=== PATIENT | female | born 2005 | race Caucasian/White ===

== ENCOUNTER → 2025-08-04 13:50 | Outpatient (CLI) | payer OTHER, SELFPAY ==
[2025-08-04 14:24] LABS: Add Manual Diff / Slide Review NO; Hematocrit 44.4 % (36-46); Hemoglobin 15.6 g/dL (12.0-16.0); Lymphocytes Absolute Auto 1100 /uL (1100-4500); Mean Corpuscular HGB Conc 35.1 % (30-36); Mean Corpuscular Hemoglobin 32.0 PG (26-34); Mean Corpuscular Volume 91.1 fL (80-100); Platelet Count 331 X10^3/uL (150-400)
[2025-08-04 14:33] LABS: Hemoglobin A1C% w Est Avg Glu 5.1 % (4.0-6.0)
[2025-08-04 14:36] LABS: Appearance Urine UA SL CLOUDY; Bilirubin Urine UA 2+ (NEGATIVE); Color Urine UA YELLOW; Glucose Urine UA NEGATIVE (Negative); Ketones Urine UA 3+ (NEGATIVE); Leukocyte Esterase Urine UA TRACE (NEGATIVE); Nitrite Urine UA NEGATIVE (Negative); Occult Blood Urine UA NEGATIVE (Negative); Protein Urine UA 2+ (Negative); Specific Gravity Urine UA 1.020 (1.000-1.035); Urobilinogen Urine UA 2.0 E.U./dL (0.2)
[2025-08-04 14:48] LABS: pH Urine UA 6.5 (4.5-8.0)
[2025-08-04 14:50] LABS: Ictotest Urine Negative (Negative)
[2025-08-04 14:51] LABS: Culture Indicated Urine Specimen Cultured
[2025-08-04 14:55] LABS: Alanine Aminotransferase 23 IU/L (<35); Albumin 5.6 g/dL (3.5-5.0); Albumin Globulin Ratio 1.7 (1.0-2.8); Alkaline Phosphatase 68 U/L (38-126); Blood Urea Nitrogen 10 mg/dL (7-17); Calcium 10.3 mg/dL (8.4-10.2); Carbon Dioxide 24 mmol/L (22-32); Chloride 100 mmol/L (98-107); Estimated Glomerular Filt Rate > 60 mL/min (>60); Globulin 3.3 g/dL (1.7-4.1); Glucose 123 mg/dL (70-99); HEMOLYSIS < 15 (0-50); Lipase 68 U/L (23-300); Potassium 3.8 mmol/L (3.4-5.1); Sodium 140 mmol/L (137-145); Total Protein 8.9 g/dL (6.3-8.2)
[2025-08-04 15:11] LABS: HCG Quantitative /Beta subunit < 2.39 mIU/mL
[2025-08-04 15:26] LABS: Thyroid Stimulating Hormone 0.593 uIU/mL (0.47-4.68)
[2025-08-04 16:02] LABS: Folate 3.6 ng/mL (2.76-20.0); Vitamin B12 828 pg/mL (239-931)
[2025-08-05 03:39] LABS: Hepatitis A Antibody IgM Negative (Negative); Hepatitis B Core Antibody IgM Negative (Negative); Hepatitis C Antibody Non Reactive (Non Reactive)
== END ==
PROVIDERS: PCP Student in an Organized Health Care Education/Training Program; Referring Provider Student in an Organized Health Care Education/Training Program; Visit Provider Student in an Organized Health Care Education/Training Program
DX: R11.10 Vomiting, unspecified (principal)
CPT/HCPCS: 36415; 80053; 80074; 81001; 82607; 82746; 83036; 83690; 84443; 84702; 85025; 87086

== ENCOUNTER 2025-08-07 08:58 | Emergency (ER) | payer OTHER, SELFPAY ==
[2025-08-07] VITALS (22 sets, daily range): BP systolic 104–130; BP diastolic 62–90; PULSE 79–142; RESP 15–24; TEMP 37.7; O2SAT 96–99; BMI 23.8
[2025-08-07] MEDS: ONDANSETRON 4 MG/2 ML INJ IV (09:50)
[2025-08-07 09:55] LABS: Add Manual Diff / Slide Review NO; Hematocrit 42.6 % (36-46); Hemoglobin 14.9 g/dL (12.0-16.0); Lymphocytes Absolute Auto 1200 /uL (1100-4500); Mean Corpuscular HGB Conc 34.9 % (30-36); Mean Corpuscular Hemoglobin 31.7 PG (26-34); Mean Corpuscular Volume 90.7 fL (80-100); Platelet Count 281 X10^3/uL (150-400)
[2025-08-07 10:10] LABS: Alanine Aminotransferase 28 IU/L (<35); Albumin 5.4 g/dL (3.5-5.0); Albumin Globulin Ratio 1.6 (1.0-2.8); Alkaline Phosphatase 61 U/L (38-126); Blood Urea Nitrogen 11 mg/dL (7-17); Calcium 9.9 mg/dL (8.4-10.2); Carbon Dioxide 23 mmol/L (22-32); Chloride 97 mmol/L (98-107); Estimated Glomerular Filt Rate > 60 mL/min (>60); Globulin 3.3 g/dL (1.7-4.1); Glucose 112 mg/dL (70-99); HEMOLYSIS < 15 (0-50); Lipase 45 U/L (23-300); Potassium 3.2 mmol/L (3.4-5.1); Sodium 135 mmol/L (137-145); Total Protein 8.7 g/dL (6.3-8.2)
[2025-08-07 11:27] LABS: Ictotest Urine Negative (Negative)
[2025-08-07 11:30] LABS: Lactate (Lactic Acid) 1.1 mmol/L (0.7-2.1)
--- NOTE | 2025-08-07 11:30 | ED_ITS ---
<Statement entered by Jacobo Piedra MD - 08/07/25 15:44> I was present in the department and available for consultation at the time the patient was seen HPI - Abdominal Pain General Chief Complaint: Abdominal Pain Stated Complaint: Throwing up for 2 weeks , not feeling good Time Seen by Provider: 08/07/25 11:15 Source: patient Mode of arrival: Ambulatory History of Present Illness HPI narrative: Minerva is a pleasant 19-year-old female with no reported past medical history who presents to the emergency department with her [id number] for concerns of acute on chronic abdominal pain, nausea, vomiting x2 weeks. Patient states over the last year she has experienced multiple episodes of persistent nausea and vomiting. She recently saw primary care provider in is in the process of further evaluation of this possible chronic condition including outpatient barium swallow, GI referral. However over the last 2 weeks the patient has had persistent nausea and vomiting and has actually lost about 10 lb and is having very minimal urination and bowel movements. She feels extremely dehydrated. She has prescriptions for Reglan, Zofran, promethazine and she attempted to take these this morning however unfortunately threw them up. She reports severe epigastric burning pain that occasionally radiates to the left upper quadrant. She denies flu-like symptoms, coughing, flank pain, alcohol use, drug use, marijuana use. No prior abdominal surgeries. Related Data Previous Rx's ?Medication ?Instructions ?Recorded ondansetron 4 mg disintegrating 4 mg PO Q8H PRN nausea and 08/07/25 tablet vomiting #20 tabs pantoprazole 40 mg tablet,delayed 40 mg PO DAILY 30 da ys #30 tabs 08/07/25 release (Protonix) potassium chloride 10 mEq 10 meq PO DAILY 5 days #5 ta bs 08/07/25 tablet,extended release (Klor-Con) promethazine 25 mg rectal 25 mg NV Q6H PRN vomiting #1 2 ea 08/07/25 suppository Allergies Allergy/AdvReac Type Severity Reaction Status Date / Time No Known Drug Allergies Allergy Verified 08/07/25 09:27 Review of Systems Review of Systems ROS Unobtainable: All systems reviewed & are unremarkable except as noted in HPI and below Patient History Social History Smoking Status: Never smoker Smoking Status: Never smoker Exam Narrative Exam Narrative: GENERAL: 19 year old patient appears stated age. Well-developed patient, in no acute distress. HEAD: Atraumatic. Normocephalic. EYES: No scleral icterus. No injection or drainage. ENT: Dry oral mucous membranes. NECK: Trachea midline. Cervical ROM intact. CARDIOVASCULAR: Regular rate and rhythm. RESPIRATORY: ?Nonlabored respirations. ?Speaking in clear, full sentences. ?Clear to auscultation. Breath sounds equal bilaterally. No wheezes, rales, or rhonchi. ? GASTROINTESTINAL: Bowel sounds present. Epigastric and left upper quadrant tenderness. No rebound or guarding. Abdomen is soft, not distended. BACK: No CVA tenderness NEURO: AOx3. ?Clear speech. ?Moves all 4 extremities appropriately. SKIN: No rash or erythema of visible areas Initial Vital Signs Initial Vital Signs: Vital Signs Temperature 99.8 F H 08/07/25 09:20 Pulse Rate 100 H 08/07/25 09:20 Respiratory Rate 22 08/07/25 09:20 Blood Pressure 126/88 08/07/25 09:20 Pulse Oximetry 96 08/07/25 09:20 Oxygen Delivery Method Room Air 08/07/25 09:20 Course Orders Ordered: ED Orders 08/07/25 09:40 Complete Blood Count AUTO DIFF Stat Comprehensive Metabolic Panel Stat Lactate (Lactic Acid) Stat Lipase Stat 08/07/25 09:41 Magnesium Stat 08/07/25 10:57 Ictotest Urine Stat Urine Culture Stat Urine Microscopic Stat 08/07/25 11:29 CT abdomen pelvis w con Stat Discontinued Medications POTASSIUM CHLORIDE IN WATER (Potassium Cl 10 Meq/100 Ml Quiana) 10 meq in 100 mls @ 100 mls/hr IV Q1H BEBETO Stop: 08/07/25 13:29 Last Infusion: 08/07/25 14:56 Dose: Infused Documented By: Admin: 08/07/25 13:42 Dose: 100 mls/hr Documented By: Infusion: 08/07/25 13:12 Dose: Infused Documented By: Admin: 08/07/25 12:12 Dose: 100 mls/hr Documented By: BJ Sodium Chloride (Normal Saline 0.9%) 1,000 mls @ 1,000 mls/hr IV BOLUS ONE Stop: 08/07/25 12:16 Last Infusion: 08/07/25 12:48 Dose: Infused Documented By: Admin: 08/07/25 11:45 Dose: 1,000 mls/hr Documented By: ES Acetaminophen (Ofirmev) 1,000 mg in 100 mls @ 400 mls/hr IV NOW ONE Stop: 08/07/25 11:46 Last Infusion: 08/07/25 12:22 Dose: Infused Documented By: Admin: 08/07/25 11:45 Dose: 400 mls/hr Documented By: ES Sodium Chloride (Normal Saline 0.9%) 1,000 mls @ 1,000 mls/hr IV BOLUS ONE Stop: 08/07/25 13:17 Last Infusion: 08/07/25 14:56 Dose: Infused Documented By: Admin: 08/07/25 12:48 Dose: 1,000 mls/hr Documented By: BJ Morphine Sulfate (Morphine 2 Mg/Ml Inj) 2 mg IV NOW ONE Stop: 08/07/25 11:30 Last Admin: 08/07/25 11:45 Dose: 2 mg Documented By: BJ Ondansetron HCl (Ondansetron 4 Mg/2 Ml Inj) 4 mg IV NOW PRN PRN Reason: Nausea And Vomiting Last Admin: 08/07/25 09:50 Dose: 4 mg Documented By: RB Ondansetron HCl (Ondansetron 4 Mg Odt) 4 mg PO NOW PRN PRN Reason: Nausea And Vomiting Pantoprazole Sodium (Pantoprazole 40 Mg Vial) 40 mg IV NOW ONE Stop: 08/07/25 11:30 Last Admin: 08/07/25 11:44 Dose: 40 mg Documented By: BJ Vital Signs Vital signs: Vital Signs - 8 hr 08/07/25 09:20 08/07/25 10:09 08/07/25 10:09 Temperature 99.8 F H Pulse Rate 100 H 99 H Respiratory Rate 22 Blood Pressure 126/88 121/90 Pulse Oximetry 96 96 Oxygen Delivery Method Room Air 08/07/25 10:15 08/07/25 10:15 08/07/25 10:30 Temperature Pulse Rate 142 H Respiratory Rate Blood Pressure 125/82 126/82 Pulse Oximetry 99 Oxygen Delivery Method 08/07/25 10:30 08/07/25 10:45 08/07/25 10:45 Temperature Pulse Rate 104 H 95 H Respiratory Rate 15 Blood Pressure 119/78 Pulse Oximetry 97 97 Oxygen Delivery Method 08/07/25 10:57 08/07/25 10:57 08/07/25 11:00 Temperature Pulse Rate 96 H 94 H Respiratory Rate 16 Blood Pressure 130/81 Pulse Oximetry 97 96 Oxygen Delivery Method 08/07/25 11:15 08/07/25 11:15 08/07/25 11:30 Temperature Pulse Rate 95 H 103 H Respiratory Rate Blood Pressure 120/85 Pulse Oximetry 97 96 Oxygen Delivery Method 08/07/25 11:30 08/07/25 11:42 08/07/25 11:42 Temperature Pulse Rate 97 H Respiratory Rate Blood Pressure 120/69 123/83 Pulse Oximetry 97 Oxygen Delivery Method 08/07/25 11:45 08/07/25 11:45 08/07/25 12:00 Temperature Pulse Rate 91 H 87 Respiratory Rate 17 Blood Pressure 127/85 Pulse Oximetry 97 97 Oxygen Delivery Method Room Air 08/07/25 12:00 08/07/25 12:30 08/07/25 12:30 Temperature Pulse Rate 90 Respiratory Rate 23 Blood Pressure 115/81 117/80 Pulse Oximetry 98 Oxygen Delivery Method 08/07/25 12:45 08/07/25 12:45 08/07/25 13:00 Temperature Pulse Rate 89 Respiratory Rate 20 Blood Pressure 104/72 110/79 Pulse Oximetry 99 Oxygen Delivery Method Room Air 08/07/25 13:00 08/07/25 13:30 08/07/25 13:30 Temperature Pulse Rate 87 83 Respiratory Rate 24 24 Blood Pressure 105/71 Pulse Oximetry 98 97 Oxygen Delivery Method 08/07/25 13:45 08/07/25 13:45 08/07/25 14:00 Temperature Pulse Rate 79 Respiratory Rate 19 Blood Pressure 118/72 123/78 Pulse Oximetry 98 Oxygen Delivery Method Room Air 08/07/25 14:00 08/07/25 14:15 08/07/25 14:15 Temperature Pulse Rate 81 84 Respiratory Rate 18 17 Blood Pressure 123/62 Pulse Oximetry 98 97 Oxygen Delivery Method 08/07/25 14:32 08/07/25 14:32 08/07/25 14:45 Temperature Pulse Rate 86 Respiratory Rate 15 Blood Pressure 114/67 109/86 Pulse Oximetry Oxygen Delivery Method 08/07/25 14:45 08/07/25 15:00 08/07/25 15:00 Temperature Pulse Rate 86 85 Respiratory Rate 19 17 Blood Pressure 125/76 Pulse Oximetry 99 99 Oxygen Delivery Method Room Air MDM - Abdominal Pain Medical Records Medical records narrative: None available for review Lab Data 08/07/25 09:40 08/07/25 09:40 Labs: Lab Results 08/07/25 08/07/25 08/07/25 Range/Units 09:40 09:41 10:57 WBC 8.2 (4.5-11.0) X10^3/uL RBC 4.69 (4.0-5.2) X10^6/uL Hgb 14.9 (12.0-16.0) g/dL Hct 42.6 (36-46) % MCV 90.7 (80-100) fL MCH 31.7 (26-34) PG MCHC 34.9 (30-36) % RDW 12.8 (11.6-14.8) % Plt Count 281 (150-400) X10^3/uL Neut % (Auto) 78.1 H (50-75) % Lymph % (Auto) 14.1 L (25-40) % Nolan % (Auto) 6.5 (3-14) % Eos % (Auto) 0.5 L (2-4) % Baso % (Auto) 0.8 (0-2) % Neut # (Auto) 6400 (6555-4715) /uL Lymph # (Auto) 1200 (4869-5104) /uL Nolan # (Auto) 500 (0-900) /uL Eos # (Auto) 0 (0-450) /uL Baso # (Auto) 100 (0-100) /uL Sodium 135 L (137-145) mmol/L Potassium 3.2 L (3.4-5.1) mmol/L Chloride 97 L (98-107) mmol/L Carbon Dioxide 23 (22-32) mmol/L BUN 11 (7-17) mg/dL Creatinine 0.55 (0.52-1.04) mg/dL Estimated GFR > 60 (>60) mL/min BUN/Creatinine Ratio 20.0 (6-22) Glucose 112 H (70-99) mg/dL Lactate 1.1 (0.7-2.1) mmol/L Calcium 9.9 (8.4-10.2) mg/dL Magnesium 2.1 (1.6-2.3) mg/dL Total Bilirubin 1.0 (0.2-1.3) mg/dL AST 29 (14-36) IU/L ALT 28 (<35) IU/L Alkaline Phosphatase 61 (38-126) U/L Total Protein 8.7 H (6.3-8.2) g/dL Albumin 5.4 H (3.5-5.0) g/dL Globulin 3.3 (1.7-4.1) g/dL Albumin/Globulin Ratio 1.6 (1.0-2.8) Lipase 45 (23-300) U/L Ur Bilirubin Confirm Negative (Negative) Urine RBC None seen (0-5/HPF) Urine WBC 1-5/hpf (0-5/HPF) Ur Squamous Epith Cells 1-5 /hpf (0-5/HPF) Urine Bacteria Occasional (0-1) (None) Ur Culture Indicated? Specimen cultured Vol Urine Centrifuged 10ml (spun) Point of care testing: Point of Care Testing Test Results Negative Urine Dip Bedside Urine Glucose Negative Bedside Urine Bilirubin + 1 Bedside Urine Ketone ++ [address] 1.015 Bedside Urine Occult Blood - Negative Bedside Urine pH 6.0 Bedside Urine Protein +/- 15 Bedside Urine Urobilinogen +/- 1mg Bedside Urine Nitrite - Negative Bedside Urine Leukocytes +/- [address] scan - abdomen/pelvis: Radiologist's Impression: PROCEDURE: CT ABDOMEN PELVIS W CON INDICATIONS: epigastric, LUQ pain; N/V TECHNIQUE: After the administration of intravenous contrast, axial sections acquired from the lung bases to the pubic symphysis. Coronal and sagittal reformats were performed. For radiation dose reduction, the following was used: automated exposure control, adjustment of mA and/or kV according to patient size. COMPARISON: None. FINDINGS: Image quality: Diagnostic. Lower Chest: No significant findings. ABDOMEN: Wmyi-fk-jmbjhpil nonspecific wall thickening of the stomach most notably at the gastric cardia and fundus as well as the pylorus and into the proximal duodenum more than expected for artifact from partial nondistention and gastritis could give this appearance. Follow-up suggested. T-shaped intrauterine device in place in the uterus. Normal non dilated appendix. 1.4 cm left ovarian/adnexal follicle or small cyst. Liver: Liver is normal in size contour and attenuation without CT evidence of focal lesion. Gallbladder: No radiopaque gallstones or wall thickening. Biliary ducts: No biliary dilation. Pancreas: No ductal dilation. No abnormal peripancreatic fluid. Spleen: Size is within normal limits. Adrenal Glands: No adrenal nodules. Kidneys and Ureters: No hydronephrosis. No solid mass. No complex renal cystic lesion which requires follow up. Small Bowel: Normal caliber, without significant wall thickening. Peritoneum: No abnormal intraperitoneal fluid. No free air. Ventral Wall: No significant ventral hernia. Abdominal Nodes: No retroperitoneal or mesenteric adenopathy by size criteria. Vessels: Aorta and inferior vena cava are normal in size. PELVIS: Pelvic Organs: Unremarkable. Bladder: No bladder wall thickening, accounting for underdistention. Pelvic Nodes: No enlarged lymph nodes. Miscellaneous: No inguinal hernias are seen. Bones: No aggressive osseous abnormality. IMPRESSION: Nonspecific wall thickening of the stomach and proximal duodenum suspicious for gastritis as discussed above. No abnormal peripancreatic edema. Dictated by: Karlos Pastor M.D. on 08/07/2025 at 11:55 Approved by: Karlos Pastor M.D. on 08/07/2025 at 12:00 [facility] Narrative Medical decision making narrative: 19-year-old female with no reported past medical history who presents to the emergency department with her [id number] for concerns of acute on chronic abdominal pain, nausea, vomiting x2 weeks. Differential diagnosis includes but is not limited to dehydration, RAGHAVENDRA, electrolyte disturbance, gastroparesis, gastritis, pancreatitis, inflammatory bowel disease, UTI, gastroenteritis, etc. On exam patient is in no acute distress, nontoxic appearing, however she is extremely dehydrated appearing with dry mucous membranes. She has epigastric and left upper quadrant abdominal tenderness with no rebound or guarding. Initial labs started in triage, we will add on lactic acid, magnesium, we will treat pain with low-dose morphine and IV Tylenol, treat with IV fluids IV potassium, Protonix. We will wait to replace potassium until magnesium is resulted. Given patient's pain, we will obtain CT abdomen pelvis with IV contrast. Labs reveal normal magnesium 2.1. Hypokalemia 3.2. Sodium 135, chloride 97. Normal WBC count 8.2, hemoglobin 14.9 hematocrit 42.6. BUN 11 creatinine 0.55. Lactate normal 1.1. Normal LFTs and normal lipase 45. Urinalysis reveals 1-5 squam epithelial cells, 1-[address] reveals a nonspecific wall thickening of the stomach and proximal duodenum suspicious for gastritis. Patient feeling better after ED treatment. Discussed imaging and lab work results. She is in the process of following up with GI, recommended endoscopy and further evaluation. We will prescribe rectal Phenergan and ODT Zofran as needed for breakthrough nausea, in addition to daily Protonix for suspected gastritis. Discussed strict ER return precautions and follow up with PCP in addition to GI. Patient and her step mom verbalized understanding of all information agreeable with the plan. Abdominal exam benign. She is tolerating p.o. stable for discharge home. Discharge Plan Departure Patient Disposition: Home Clinical Impression: Dehydration, Acute hypokalemia Nausea & vomiting Qualifiers: Vomiting type: unspecified Qualified Code(s): R11.2 - Nausea with vomiting, unspecified Gastritis Qualifiers: Gastritis type: unspecified gastritis Chronicity: unspecified Gastritis bleeding: without bleeding Qualified Code(s): K29.70 - Gastritis, unspecified, without bleeding Instructions: [place] Diet, DI for Gastritis Activity Restrictions/Additional Instructions: Dear Berta Minerva, Thank you for coming to the emergency department. Today you were evaluated for abdominal pain, nausea, vomiting. Your lab work revealed low potassium. Your CT scan revealed possible gastritis. You have been prescribed dissolvable Zofran to use if needed in addition to rectal Phenergan to use if needed for breakthrough nausea and vomiting. You have also been prescribed 5 days of potassium supplementation, and 1 month of Protonix which is a daily medication for gastritis. It is very important to follow up with your primary care doctor and a gastrointestinal doctor for further evaluation, possible upper endoscopy. Please return to the ER immediately if you develop any new or worsening symptoms, inability to keep down any fluids, fevers severe pain or other concerns. Please follow up with your primary care doctor within the next 2-3 days for ER follow-up. (If you do not have a PCP you can call [phone]. ?to schedule an appointment with an [facility] Primary Care Provider) IF YOU DEVELOP ANY NEW OR WORSENING SYMPTOMS, RETURN TO THE ER! Please read the attached instructions, they highlight more specific treatments and interventions for you at home. Thank you for letting me participate in your care, Marleen Linder PA-C Prescriptions: New promethazine 25 mg suppository 25 mg NV Q6H PRN (Reason: vomiting) Qty: 12 0RF pantoprazole [Protonix] 40 mg tablet,delayed release (DR/EC) 40 mg PO DAILY 30 Days Qty: 30 0RF ondansetron 4 mg tablet,disintegrating 4 mg PO Q8H PRN (Reason: nausea and vomiting) Qty: 20 0RF potassium chloride [Klor-Con 10] 10 mEq tablet extended release 10 meq PO DAILY 5 Days Qty: 5 0RF Stand Alone Forms: Patient Portal/API
[2025-08-07 11:37] LABS: Culture Indicated Urine Specimen Cultured
[2025-08-07] MEDS: PANTOPRAZOLE 40 MG VIAL IV (11:44)
[2025-08-07 11:45] LABS: Magnesium 2.1 mg/dL (1.6-2.3)
[2025-08-07] MEDS: MORPHINE 2 MG/ML INJ IV (11:45)
[2025-08-07] MEDS: ACETAMINOPHEN IV 1,000 MG/100 ML VIAL 400 MG IV (11:45)
[2025-08-07] MEDS: SODIUM CHLORIDE 0.9% 1,000 ML 1000 ML IV ×2 (11:45→12:48)
[2025-08-07] MEDS: POTASSIUM CHLORIDE IN WATER 10 MEQ/100 ML PIGGYBACK 100 MEQ IV ×2 (12:12→13:42)
== END 2025-08-07 15:22 | disposition home or self-care (01) ==
PROVIDERS: Emergency Medicine; Emergency Provider Physician Assistant
DX: K29.70 Gastritis, unspecified, without bleeding (principal); R11.2 Nausea with vomiting, unspecified; E86.0 Dehydration; E87.6 Hypokalemia; R10.13 Epigastric pain; R10.12 Left upper quadrant pain
CPT/HCPCS: 36415; 74177; 80053; 81003; 81015; 81025; 83605; 83690; 83735; 85025; 87086; 96365; 96366; 96367; 96375; 99284; J0131; J2270; J2405; J2470; Q9967

== ENCOUNTER 2025-08-24 14:03 | Day surgery (SDC) | payer OTHER, SELFPAY ==
--- NOTE | 2025-08-24 | PATH_ITS ---
[facility] Accession Number: [id number] No. of containers..01 Tissue . 01 Material submitted: . gastrointestinal site - STOMACH, ANTRAL BIOPSY . 01 Clinical history: . R/O H.PYLORI . 01 Diagnosis: STOMACH, ANTRAL BIOPSY: Gastric antral mucosa with no diagnostic alterations. No Helicobacter organisms identified on H/E stain. No intestinal metaplasia, dysplasia, or malignancy identified. [facility] 09/06/[id number] Local . 01 Electronically signed: . Win Reyes MD, Pathologist NPI- [id number] . 01 Gross description: . Received in formalin with two identifiers and antral biopsy, rule out H. pylori, is a single jane soft tissue fragment 0.3 cm in greatest dimension. Submitted entirely in cassette A1. ([id number]) /[facility] 09/06/20251333 Local . 01 Pathologist provided ICD-10: K29.70 . 01 CPT . 616846 Specimen Comment: A courtesy copy of this report has been sent to [facility] Pathology Performed at: [address], [place], [place] [id number] MD Win Reyes MD Phone: [phone]
--- NOTE | 2025-08-24 07:25 | PM.PREOP ---
Pre-operative Note Interval Note History & Physical reviewed/Exam performed by Physician: Yes Changes to H&P: No ASA Class (for procedural sedation): I
[2025-08-24 14:21] VITALS: BP 113/79; PULSE 71; RESP 24; TEMP 36.1; O2SAT 99
[2025-08-24] MEDS: LACTATED RINGERS 1,000 ML 42 ML IV (14:36)
--- NOTE | 2025-08-24 14:42 | PM.OP.EGD ---
Operative Date/Time/Diagnoses Date of procedure: 08/24/25 Time of procedure: 14:55 Pre-op diagnosis: Abdominal pain, gastritis Post-op diagnosis: same Procedure & Clinicians Study performed: EGD, biopsy Same procedure(s) as scheduled: Yes Indications: 19yo F, abdominal pain, gastritis on imaging Surgeon: Kev Olivares Anesthesia Type: MAC +/- Procedure Notes SCOAP/Timeout: Performed Procedure in detail: EGD Informed consent was obtained. The procedure, its risks, benefits, and alternatives were discussed. Patient understood and agreed to proceed. The patient was placed in the left lateral decubitus position with head elevated. Sedation given per anesthesia. The video endoscope was inserted into the oropharynx and guided under direct vision into the esophagus, stomach, and duodenum which were carefully examined. The scope was retroflexed to examine the hiatus and gastroesophageal junction. Antral biopsies were obtained for Helicobacter pylori. The patient tolerated the procedure very well. There were no apparent complications. Significant EGD findings: Z-line noted at: 38cm Esophagus normal, no hiatal hernia, no esophagitis Gastric body normal, no gastritis, ulcer, polyp, mass; antral biopsies taken for H pylori Duodenum normal, no duodenitis, polyp or mass Specimen(s): other (antral biopsies) Complications: none Impression: Normal EGD Biopsies taken to r/o H pylori Post-procedure Recommendations: Will call with biopsy results Plan for aftercare: PACU then home Follow up: as needed Disposition: PACU
[2025-08-24 14:57] VITALS: BP 91/50; PULSE 66; RESP 11; TEMP 36.1; O2SAT 98
[2025-08-24 15:02] VITALS: BP 95/61; PULSE 59; RESP 18; O2SAT 100
[2025-08-24 15:09] VITALS: BP 106/55; PULSE 69; RESP 18; O2SAT 91
[2025-08-24 15:15] VITALS: BP 108/72; PULSE 74; RESP 19; O2SAT 98
[2025-08-24 15:17] VITALS: BP 114/67; PULSE 66; RESP 15; TEMP 36.1; O2SAT 100
== END 2025-08-24 15:50 | disposition home or self-care (01) ==
PROVIDERS: PCP Student in an Organized Health Care Education/Training Program; Referring Provider Surgery; Visit Provider Surgery
PROC: 0DJ08ZZ Inspection of Upper Intestinal Tract, Via Natural or Artificial Opening Endoscopic (ICD-10-PCS; CPT 43235; principal; 2025-08-24 15:15)
DX: R10.9 Unspecified abdominal pain (principal)
CPT/HCPCS: 43235; J2704; J7120

== ENCOUNTER → 2025-08-30 07:46 | Outpatient (CLI) | payer OTHER, SELFPAY ==
--- NOTE | 2025-08-30 07:48 | DI.NM.S_ITS ---
PROCEDURE: NM GASTRIC EMPTYING STUDY RADIOPHARMACEUTICAL: 1 mCi Tc-99m sulfur colloid in an egg sandwich. INDICATIONS: eval gastroparesis TECHNIQUE: A Tc-99m labeled sulfur colloid labeled egg sandwich or oatmeal was served to the patient. Anterior and posterior planar images of the abdomen were obtained at 0 minutes and 30 minutes, then at hourly intervals up to 4 hours. The patient was upright and ambulating during the interval. COMPARISON: None. FINDINGS: The stomach has normal size, morphology, and position. There is normal emptying of solid gastric contents from the stomach by visual inspection. No gastroesophageal reflux is visualized. The percentage of tracer retained at specific time points are as follows: Time point Percent gastric retention Normal range 30 minutes 100 70% or more 1 hour 81 30% to 90% 2 hours 25 60% or less 3 hours 11 30% or less 4 hours 10 10% or less IMPRESSION: No scintigraphic findings concerning for delayed gastric emptying. Dictated by: Rosa Isela Eduardo M.D. on 08/30/2025 at 13:26 Approved by: Rosa Isela Eduardo M.D. on 08/30/2025 at 13:27
== END ==
LOC: NUCM 07:48
PROVIDERS: PCP Student in an Organized Health Care Education/Training Program; Referring Provider Student in an Organized Health Care Education/Training Program; Visit Provider Student in an Organized Health Care Education/Training Program
DX: R11.10 Vomiting, unspecified (principal)
CPT/HCPCS: 78264; A9541

== ENCOUNTER → 2025-09-13 10:39 | Oncology outpatient (ONC) | payer OTHER, SELFPAY ==
[2025-08-16 10:20] VITALS: BP 123/77; PULSE 123; RESP 18; TEMP 36.9; O2SAT 98
[2025-08-16 10:30] VITALS: BP 119/87; BP 123/77; PULSE 123; PULSE 143
[2025-08-16] MEDS: LACTATED RINGERS 1,000 ML 1000 ML IV (10:50)
[2025-08-16] MEDS: ONDANSETRON 4 MG/2 ML INJ IV (10:50)
--- NOTE | 2025-08-16 11:06 | INF.NOTE ---
Patient here for hydration infusions with IV zofran. Verified with Cinthia RN @ [facility] that Zofran order is ok to give IV with the weekly LR infusions. Orthostatic VS checked, see flowsheet. Patient has ongoing nausea but reports medications have allowed her to tolerate PO fluids and food with small amounts/small sips without emesis. She relays fatigue and foggy brain feeling, dry mouth, dry lips despite the tolerating oral fluids. Skin noted to be dry.
[2025-08-16 12:19] VITALS: BP 115/79; PULSE 72; RESP 16; TEMP 37.3; O2SAT 100
[2025-08-23 10:29] VITALS: BP 89/54; PULSE 73; RESP 18; TEMP 36.6; O2SAT 98
[2025-08-23] MEDS: ONDANSETRON 4 MG/2 ML INJ IV (10:50)
[2025-08-23] MEDS: LACTATED RINGERS 1,000 ML 1000 ML IV (10:51)
[2025-08-23 11:51] VITALS: BP 97/60; PULSE 66; RESP 18; TEMP 36.7; O2SAT 100
--- NOTE | 2025-08-23 11:56 | INF.NOTE ---
Patient here for LR and zofran due to nauseau and vomiting. She is feeling nauseaus today. Zofran administered with improvement resulting. systolic BP 89 at start with complaint of some dizziness. End systolic was 96. Patient states feeling only very light dizziness. She walked to bathroom and back and stated she felt steady and good enough to leave.
[2025-08-28 10:30] VITALS: BP 107/68; PULSE 98; RESP 18; TEMP 36.7; O2SAT 100
[2025-08-28] MEDS: LACTATED RINGERS 1,000 ML 1000 ML IV (10:55)
[2025-08-28] MEDS: ONDANSETRON 4 MG/2 ML INJ IV (10:55)
[2025-08-28 12:25] VITALS: BP 101/54; PULSE 58; RESP 18; TEMP 37.1; O2SAT 99
[2025-08-31] MEDS: ONDANSETRON 4 MG/2 ML INJ IV (11:05)
[2025-08-31 11:06] VITALS: BP 102/68; PULSE 110; RESP 22; TEMP 37; O2SAT 99
[2025-08-31] MEDS: LACTATED RINGERS 1,000 ML 1000 ML IV (11:10)
[2025-08-31 13:13] VITALS: BP 96/50; PULSE 59; RESP 16; TEMP 36.6; O2SAT 100
[2025-09-04 10:41] VITALS: BP 129/73; PULSE 96; RESP 18; TEMP 37.1; O2SAT 97
[2025-09-04] MEDS: LACTATED RINGERS 1,000 ML 1000 ML IV (10:50)
[2025-09-04] MEDS: ONDANSETRON 4 MG/2 ML INJ IV (11:33)
[2025-09-04 12:15] VITALS: BP 95/67; PULSE 78; RESP 18; TEMP 37.2; O2SAT 98
[2025-09-06 10:44] VITALS: BP 114/66; PULSE 95; RESP 16; TEMP 36.4; O2SAT 99
[2025-09-06] MEDS: LACTATED RINGERS 1,000 ML 1000 ML IV (10:50)
[2025-09-06] MEDS: ONDANSETRON 4 MG/2 ML INJ IV (10:50)
[2025-09-06 12:18] VITALS: BP 97/53; PULSE 70; RESP 16; TEMP 36.6; O2SAT 98
[2025-09-11 10:43] VITALS: BP 102/59; PULSE 85; RESP 12; TEMP 36.9; O2SAT 100
[2025-09-11] MEDS: LACTATED RINGERS 1,000 ML 1000 ML IV (10:55)
[2025-09-11] MEDS: ONDANSETRON 4 MG/2 ML INJ IV (10:57)
[2025-09-11 12:09] VITALS: BP 94/59; PULSE 59; RESP 12; TEMP 36.6; O2SAT 100
[2025-09-13] MEDS: ONDANSETRON 4 MG/2 ML INJ IV (10:59)
[2025-09-13] MEDS: LACTATED RINGERS 1,000 ML 1000 ML IV (11:00)
[2025-09-13 11:02] VITALS: BP 96/54; PULSE 76; RESP 16; TEMP 36.7; O2SAT 97
[2025-09-13 12:10] VITALS: BP 93/46; BP 98/62; PULSE 76; PULSE 82; RESP 16; TEMP 36.3; O2SAT 99
== END ==
PROVIDERS: PCP Student in an Organized Health Care Education/Training Program; Referring Provider Student in an Organized Health Care Education/Training Program; Visit Provider Student in an Organized Health Care Education/Training Program
DX: R11.2 Nausea with vomiting, unspecified (principal)
CPT/HCPCS: 96361; 96374; J2405; J7120

== ENCOUNTER 2025-09-18 15:51 | Emergency (ER) | payer OTHER, SELFPAY ==
[2025-09-18 15:56] VITALS: BP 127/76; PULSE 55; RESP 16; TEMP 36.5; O2SAT 99; BMI 24.7
[2025-09-18] MEDS: METOCLOPRAMIDE 10 MG/2 ML INJ IV (16:23)
[2025-09-18] MEDS: SODIUM CHLORIDE 0.9% 1,000 ML 1000 ML IV (16:23)
[2025-09-18] MEDS: diphenhydrAMINE 50 MG/ML VIAL 25 MG IV (16:23)
[2025-09-18 16:32] LABS: Add Manual Diff / Slide Review NO; Hematocrit 39.6 % (36-46); Hemoglobin 13.3 g/dL (12.0-16.0); Lymphocytes Absolute Auto 1100 /uL (1100-4500); Mean Corpuscular HGB Conc 33.6 % (30-36); Mean Corpuscular Hemoglobin 32.0 PG (26-34); Mean Corpuscular Volume 95.0 fL (80-100); Platelet Count 270 X10^3/uL (150-400)
[2025-09-18 16:50] LABS: Alanine Aminotransferase 23 IU/L (<35); Albumin 5.1 g/dL (3.5-5.0); Albumin Globulin Ratio 1.5 (1.0-2.8); Alkaline Phosphatase 52 U/L (38-126); Blood Urea Nitrogen 14 mg/dL (7-17); Calcium 9.6 mg/dL (8.4-10.2); Carbon Dioxide 22 mmol/L (22-32); Chloride 102 mmol/L (98-107); Estimated Glomerular Filt Rate > 60 mL/min (>60); Globulin 3.3 g/dL (1.7-4.1); Glucose 106 mg/dL (70-99); HEMOLYSIS 23 (0-50); Potassium 4.2 mmol/L (3.4-5.1); Sodium 139 mmol/L (137-145); Total Protein 8.4 g/dL (6.3-8.2)
[2025-09-18 16:51] LABS: Culture Indicated Urine Cult Not Indicated
[2025-09-18 16:56] VITALS: BP 108/57; PULSE 86; RESP 18; O2SAT 97
--- NOTE | 2025-09-18 18:08 | ED.NAVMDI ---
HPI - Nausea/Vomiting/Diarrhea General Chief complaint: Nausea/Vomiting/Diarrhea Stated complaint: Vomiting, pc ref Time Seen by Provider: 09/18/25 16:04 Source: patient Mode of arrival: Ambulatory History of Present Illness HPI Narrative: 19-year-old woman with a history of cyclic vomiting that began approximately a year and half ago after trying semaglutide. She sees her primary care physician regularly, has seen Gastroenterology, she is scheduled for outpatient IV rehydration twice weekly. Today's visit was canceled by the clinic. She saw her primary care physician at around 3:00 p.m. this afternoon with increasing nausea and vomiting she was sent to the ER for hydration and IV antiemetics. No fevers or chills. She notes that hot showers do not help at home. She has follow up appointment scheduled in the near future and has Zofran available at home. Related Data Home Medications ?Medication ?Instructions ?Recorded ?Confirmed potassium bicarbonate-citric acid 1 ea PO BID 08/16/25 09/18/25 20 mEq effervescent tablet (Effer-K) promethazine 25 mg tablet 25 mg PO Q6H PRN nausea and 08/16/25 09/18/25 vomiting Previous Rx's ?Medication ?Instructions ?Recorded ondansetron 4 mg disintegrating 4 mg PO Q8H PRN nausea and 08/07/25 tablet vomiting #20 tabs promethazine 25 mg rectal 25 mg VT Q6H PRN vomiting #12 ea 08/07/25 suppository ondansetron 4 mg disintegrating 4 mg PO Q6H PRN nausea and 08/09/25 tablet vomiting #30 tabs potassium chloride 10 mEq 10 meq PO DAILY #90 tabs 08/18/25 tablet,extended release pantoprazole 40 mg tablet,delayed 40 mg PO BID #60 tabs 08/28/25 release (Protonix) omeprazole 40 mg capsule,delayed 40 mg PO DAILY #30 caps 08/30/25 release midodrine 2.5 mg tablet 2.5 mg PO TID #90 tabs 09/18/25 Allergies Allergy/AdvReac Type Severity Reaction Status Date / Time No Known Drug Allergies Allergy Verified 09/18/25 15:32 Review of Systems Review of Systems Narrative: Pertinent positive and negative findings as per HPI Exam Initial Vital Signs Initial Vital Signs: Vital Signs Temperature 97.7 F 09/18/25 15:56 Pulse Rate 55 L 09/18/25 15:56 Respiratory Rate 16 09/18/25 15:56 Blood Pressure 127/76 09/18/25 15:56 Pulse Oximetry 99 09/18/25 15:56 Oxygen Delivery Method Room Air 09/18/25 15:56 General: Alert appropriate in no acute distress Respiratory: Able to speak in full sentences, no obvious respiratory distress Abdomen: Soft, nontender. No acute surgical abdomen Skin: No obvious rashes, warm and dry Neurologic: Grossly intact no obvious asymmetries or abnormalities Psych: appropriate insight and affect, cooperative Course Orders Ordered: ED Orders 09/18/25 16:05 Complete Blood Count AUTO DIFF Stat Comprehensive Metabolic Panel Stat 09/18/25 16:25 Urine Microscopic Stat Discontinued Medications Diphenhydramine HCl (Diphenhydramine 50 Mg/Ml Vial) 25 mg IV NOW ONE Stop: 09/18/25 16:05 Last Admin: 09/18/25 16:23 Dose: 25 mg Documented By: EB Sodium Chloride (Normal Saline 0.9%) 1,000 mls @ 1,000 mls/hr IV BOLUS ONE Stop: 09/18/25 17:03 Last Admin: 09/18/25 16:23 Dose: 1,000 mls/hr Documented By: EB Metoclopramide HCl (Metoclopramide 10 Mg/2 Ml Inj) 10 mg IV NOW ONE Stop: 09/18/25 16:05 Last Admin: 09/18/25 16:23 Dose: 10 mg Documented By: EB Vital Signs Vital signs: Vital Signs - 8 hr 09/18/25 15:56 09/18/25 16:56 Temperature 97.7 F Pulse Rate 55 L 86 Respiratory Rate 16 18 Blood Pressure 127/76 108/57 L Pulse Oximetry 99 97 Oxygen Delivery Method Room Air Room Air MDM - Nausea/Vomiting/Diarrhea Lab Data 09/18/25 16:05 09/18/25 16:05 Labs: Lab Results 09/18/25 09/18/25 Range/Units 16:05 16:25 WBC 13.9 H (4.5-11.0) X10^3/uL RBC 4.17 (4.0-5.2) X10^6/uL Hgb 13.3 (12.0-16.0) g/dL Hct 39.6 (36-46) % MCV 95.0 (80-100) fL MCH 32.0 (26-34) PG MCHC 33.6 (30-36) % RDW 13.6 (11.6-14.8) % Plt Count 270 (150-400) X10^3/uL Neut % (Auto) 85.1 H (50-75) % Lymph % (Auto) 8.2 L (25-40) % Garrard % (Auto) 4.0 (3-14) % Eos % (Auto) 2.0 (2-4) % Baso % (Auto) 0.7 (0-2) % Neut # (Auto) 42684 H (0243-7198) /uL Lymph # (Auto) 1100 (8103-7135) /uL Garrard # (Auto) 600 (0-900) /uL Eos # (Auto) 300 (0-450) /uL Baso # (Auto) 100 (0-100) /uL Sodium 139 (137-145) mmol/L Potassium 4.2 (3.4-5.1) mmol/L Chloride 102 (98-107) mmol/L Carbon Dioxide 22 (22-32) mmol/L BUN 14 (7-17) mg/dL Creatinine 0.54 (0.52-1.04) mg/dL Estimated GFR > 60 (>60) mL/min BUN/Creatinine Ratio 25.9 H (6-22) Glucose 106 H (70-99) mg/dL Calcium 9.6 (8.4-10.2) mg/dL Total Bilirubin 0.5 (0.2-1.3) mg/dL AST 27 (14-36) IU/L ALT 23 (<35) IU/L Alkaline Phosphatase 52 (38-126) U/L Total Protein 8.4 H (6.3-8.2) g/dL Albumin 5.1 H (3.5-5.0) g/dL Globulin 3.3 (1.7-4.1) g/dL Albumin/Globulin Ratio 1.5 (1.0-2.8) Urine RBC None seen (0-5/HPF) Urine WBC 0-1/hpf (0-5/HPF) Ur Squamous Epith Cells 5-10 /hpf H (0-5/HPF) Urine Bacteria Many (>30) H (None) Urine Mucus 4+ H (Negative) Ur Culture Indicated? Cult not indicated Vol Urine Centrifuged 10ml (spun) Urine Dip Bedside Urine Glucose Negative Bedside Urine Bilirubin - Negative Bedside Urine Ketone ++ 40 Urine Specific Burke 1.020 Bedside Urine Occult Blood - Negative Bedside Urine pH 6.0 Bedside Urine Protein +/- 15 Bedside Urine Urobilinogen +/- 1mg Bedside Urine Nitrite - Negative Bedside Urine Leukocytes - Negative Esterase MDM Narrative Medical decision making narrative: 19-year-old woman with a 1-1/2 year history of cyclic vomiting. Typically has twice weekly IV infusions as an outpatient was not able to get hers today. Vomiting was increasing this afternoon she comes in for 2 L of fluid and antiemetics. She states that is is no different from her usual, there was no fevers, there was no blood, hot showers do not help which argues against cannabinoid hyperemesis syndrome. She has had all appropriate workup and does not need additional imaging at this time CBC shows mild leukocytosis without anemia Chemistries are reassuring with normal electrolytes and creatinine Urine appears contaminated, no evidence of bladder infection In the emergency department she is given a L of fluid, 10 mg of Reglan and 25 mg of Benadryl. She is feeling much better, able to drink liquids. Requests discharge. As mentioned above she has a appropriate follow up with primary care and GI as well as continued infusion clinic orders. She is safe for discharge Discharge Plan Departure Patient Disposition: Home Clinical Impression: Cyclical vomiting Instructions: DI for Vomiting -- Adult Activity Restrictions/Additional Instructions: Thank you for coming in today. I am sorry and you are having to deal with this issue, vomiting can be so frustrating. It sounds like you have an appropriate treatment plan outlined, additional orders for outpatient IV infusion and follow up with both your primary care and gastroenterology doctors. You have appropriate medications available to you at home. If you find that you are getting worse or develop any new symptoms, please feel free to return to the emergency department for further evaluation. Prescriptions: No Action potassium chloride 10 mEq tablet extended release 10 meq PO DAILY Qty: 90 0RF pantoprazole [Protonix] 40 mg tablet,delayed release (DR/EC) 40 mg PO BID Qty: 60 3RF midodrine 2.5 mg tablet 2.5 mg PO TID Qty: 90 3RF Rx Instructions: do not give last dose of day after 6PM or within 4 hrs of bedtime omeprazole 40 mg capsule,delayed release(DR/EC) 40 mg PO DAILY Qty: 30 0RF ondansetron 4 mg tablet,disintegrating 4 mg PO Q6H PRN (Reason: nausea and vomiting) Qty: 30 1RF promethazine 25 mg suppository 25 mg VT Q6H PRN (Reason: vomiting) Qty: 12 0RF ondansetron 4 mg tablet,disintegrating 4 mg PO Q8H PRN (Reason: nausea and vomiting) Qty: 20 0RF promethazine 25 mg tablet 25 mg PO Q6H PRN (Reason: nausea and vomiting) Effer-K 20 mEq tablet, effervescent 1 ea PO BID Referrals: Tiara Brower MD [Primary Care Provider, Family Practice] Stand Alone Forms: Patient Portal/API
== END 2025-09-18 18:34 | disposition home or self-care (01) ==
PROVIDERS: Emergency Provider Emergency Medicine; PCP Student in an Organized Health Care Education/Training Program
DX: R11.15 Cyclical vomiting syndrome unrelated to migraine (principal)
CPT/HCPCS: 36415; 80053; 81003; 81015; 85025; 96361; 96374; 96375; 99284; J1200; J2765; J7030

== ENCOUNTER → 2025-10-16 09:55 | Oncology outpatient (ONC) | payer OTHER, SELFPAY ==
[2025-10-10 09:45] VITALS: BP 112/77; PULSE 93; RESP 18; TEMP 36.6; O2SAT 99
[2025-10-10] MEDS: ONDANSETRON 4 MG/2 ML INJ IV (09:55)
[2025-10-10] MEDS: LACTATED RINGERS 1,000 ML 1000 ML IV (09:55)
[2025-10-10 11:19] VITALS: BP 102/64; PULSE 61; RESP 16; TEMP 36.5; O2SAT 99
[2025-10-16 09:50] VITALS: BP 125/73; PULSE 66; RESP 18; TEMP 36.8; O2SAT 100
[2025-10-16] MEDS: LACTATED RINGERS 1,000 ML 1000 ML IV (10:05)
[2025-10-16] MEDS: ONDANSETRON 4 MG/2 ML INJ IV (10:07)
[2025-10-16 11:15] VITALS: BP 116/71; PULSE 65; RESP 18; TEMP 36.6; O2SAT 99
== END ==
PROVIDERS: PCP Student in an Organized Health Care Education/Training Program; Referring Provider Student in an Organized Health Care Education/Training Program; Visit Provider Student in an Organized Health Care Education/Training Program
DX: R11.15 Cyclical vomiting syndrome unrelated to migraine (principal); R11.0 Nausea
CPT/HCPCS: 36415; 96360; 96361; 96374; J2405; J7120